=== PATIENT | male | born 1960 | race Caucasian/White ===

== ENCOUNTER → 2017-05-24 | Outpatient (CLI) | payer BC ==
[2017-05-24 14:28] LABS: ALBUMIN 3.9 gm/dl (3.4-5.0); ALT/SGPT 27 U/L (12-78); BLOOD UREA NITROGEN 16 mg/dl (7-18); CALCIUM 8.7 mg/dl (8.5-10.1); CARBON DIOXIDE 29 mmol/L (21-32); CHOLESTEROL 213 mg/dl (0-200); CREATININE 0.93 mg/dl (0.60-1.40); GLUCOSE 101 mg/dl (70-99); SODIUM 138 mmol/L (136-145)
[2017-05-24 14:32] LABS: ALKALINE PHOSPHATASE 59 U/L (45-117); AST/SGOT 15 U/L (15-37); LDL CHOLESTEROL CALCULATED 140 mg/dl; TOTAL PROTEIN 6.3 gm/dl (6.4-8.2)
== END | disposition home or self-care (01) ==
LOC: C.LABMFLN 07:12
PROVIDERS: ATTEND Family Medicine
DX: E78.5 Hyperlipidemia, unspecified (principal)